=== PATIENT | male | born 1970 | race Caucasian/White ===

== ENCOUNTER 2019-12-04 08:48 | Day surgery (SDC) | payer BC ==
[2019-12-04] MEDS ORDERED: Sodium Chloride 0.9% 10 ML Syringe FLUSH PRN (09:00)
[2019-12-04] MEDS ORDERED: Lactated Ringers 1,000 ML IV SCH (09:00)
[2019-12-04] MEDS ORDERED: Lidocaine 1%/Sod Bicarbonate in NS 8.4% 1 ML Syringe IDERM PRN (09:00)
[2019-12-04] MEDS ORDERED: Albuterol/Ipratropium 3.0-0.5 MG/3 ML Neb Soln NEB ONE (09:33)
--- NOTE | 2019-12-04 09:36 | PCM.PREANE ---
Preanesthetic Assessment - Procedure Proposed Procedure: Screening Colonoscopy - Anesthesia/Transfusion/Family Hx Anesthesia History: Prior Anesthesia Without Reaction Family History of Anesthesia Reaction: No - Review of Systems General: No Symptoms Pulmonary: Cough, Sputum (Yellow ), Other (Smoker 2 ppd. Quite 2 years ago and then started up again. Cough with phlem production daily, worse in the mornings. ) Cardiovascular: No Symptoms, Other (Hypertension, on oral medication for control. Saw PCP last on 12/01/2019 for management. Changed medication due to dizziness. ) Gastrointestinal: No Symptoms Neurological: Pre-Existing Deficit (Surgery to finger last week at [facility]. Left hand/finger in a splint. Crush injury at work. ) Other: Reports: None - Physical Assessment NPO Status Date: 12/04/19 NPO Status Time: 05:00 Weight: 81 kg ASA Class: 3 Mental Status: Alert & Oriented x3 Airway Class: Mallampati = 2 Dentition: Reports: Caries Thyro-Mental Finger Breadths: 3 Mouth Opening Finger Breadths: 3 ROM/Head Extension: Full Lungs: Decreased Breath Sounds Cardiovascular: Regular Rate, Regular Rhythm - Anesthesia Plan Pre-Op Medication Ordered: Other (Nebulizer Treatment) - Acknowledgements Anesthesia Type Planned: MAC Pt an Appropriate Candidate for the Planned Anesthesia: Yes Alternatives and Risks of Anesthesia Discussed w Pt/Guardian: Yes Pt/Guardian Understands and Agrees with Anesthesia Plan: Yes
[2019-12-04] MEDS ORDERED: Albuterol/Ipratropium 3.0-0.5 MG/3 ML Neb Soln ONE (11:16)
--- NOTE | 2019-12-04 12:16 | PCM.PRNOTE ---
- Free Text/Narrative Note: Date: 12/04/2019 Procedure: screening colonoscopy Endoscopist: Remi Nunes MD Findings: Ileocecal valve and appendiceal orifice visualized. Prep was good. One subcentimeter polyp in descending colon, and one larger multilobular 1 cm polyp in the rectum. Mild internal hemorrhoidal disease. Detailed Report: The patient was taken to the endoscopy suite and placed in left lateral decubitus position. Time out was performed and monitored anesthesia care was initiated. The anus appeared normal. Digital rectal exam was unremarkable. The lubricated colonoscope was then inserted and advanced all the way to the cecum with ease. The ileocecal valve and appendiceal orifice were visualized. The prep was noted to be good, but with significant bubbles throughout. On slow withdrawal of the scope, mucosal surfaces were carefully inspected. A small polyp in the descending colon was biopsied with forceps and the base fulgurated. A larger, 1 cm multilobular polyp was noted in the rectum. Hot snare polypectomy was performed. On retroflexion in the rectum, mild internal hemorrhoidal disease was noted. No diverticular disease was appreciated. The patient tolerated the procedure well. Remi Nunes MD General Surgery
--- NOTE | 2019-12-04 12:35 | PCM.POSTAN ---
POST ANESTHESIA ASSESSMENT - MENTAL STATUS Mental Status: Somnolent - VITAL SIGNS Vital Signs: Last Vital Signs Temp 36.7 C 12/04/19 09:00 Pulse 71 12/04/19 12:15 Resp 12 12/04/19 12:15 BP 93/62 12/04/19 12:15 Pulse Ox 97 12/04/19 12:15 - RESPIRATORY Respiratory Status: Respiratory Rate WNL, Airway Patent, O2 Saturation Stable - CARDIOVASCULAR CV Status: Pulse Rate WNL, Blood Pressure Stable - GASTROINTESTINAL GI Status: No Symptoms (No concerns at this time)
--- NOTE | 2019-12-04 12:37 | PCM48HPAN ---
Post Anesthesia Note - EVALUATION WITHIN 48HRS OF ANESTHETIC Vital Signs in Normal Range: Yes Patient Participated in Evaluation: No Respiratory Function Stable: Yes Airway Patent: Yes Cardiovascular Function Stable: Yes Hydration Status Stable: Yes Pain Control Satisfactory: Yes Nausea and Vomiting Control Satisfactory: Yes Mental Status Recovered: Yes Vital Signs: Last Vital Signs Temp 36.7 C 12/04/19 09:00 Pulse 71 12/04/19 12:15 Resp 12 12/04/19 12:15 BP 93/62 12/04/19 12:15 Pulse Ox 97 12/04/19 12:15 - COMMENTS/OBSERVATIONS Free Text/Narrative:: Routine MAC anesthetic and recovery. No concerns at this time.
== END 2019-12-04 13:03 | disposition home or self-care (01) ==
LOC: JD.SDS 08:48
PROVIDERS: ATTEND Surgery
DX: Z12.11 Encounter for screening for malignant neoplasm of colon (principal); D12.4 Benign neoplasm of descending colon; D12.8 Benign neoplasm of rectum; K64.8 Other hemorrhoids; F17.210 Nicotine dependence, cigarettes, uncomplicated; I10 Essential (primary) hypertension; Z88.0 Allergy status to penicillin; Z79.899 Other long term (current) drug therapy
CPT/HCPCS: 45380; 45385; 94640; J0171; J2001; J2704; J3010; J7120; J7620-GY